=== PATIENT | male | born 1975 | race American Indian/Alaskan Native ===

== ENCOUNTER 2021-11-10 07:11 | Outpatient (CLI) | payer BC ==
--- NOTE | 2021-11-10 09:12 | Cat Scan Report ---
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 TECHNIQUE: Axial imaging performed through the chest without the use of intravenous contrast. All C T scans at this location are performed using CT dose reduction for ALARA by means of automated exposu re control. COMPARISON: None FINDINGS: Severe emphysema with scarring and bullous change in both upper lobes. There are multiple nodules primarily in the right lung in a random distribution ranging in size from 2-10 mm. There is a lso questionable cavitary disease versus thick rind associated with some of the bulla most notably in the right apex and in the left upper lobe (for example image 107 of series 2). Cavitary disease is f avored. There is no consolidation or pleural effusion. Normal heart size. No significant coronary artery calcification. Old sternotomy change Limited imaging of the upper abdomen shows nothing acute. No acute osseous abnormality. IMPRESSION: 1. Lung findings as outlined above most likely representing a combination of emphysema and underlying cavitary lung disease as well as nodularity. Consideration would be an atypical infectious/inflammat ory process such as mycobacterial disease. No dense consolidation or pleural effusion. Signer Name: Etienne Granado MD Signed: 11/10/2021 9:08 AM Workstation Name: [id number]
== END 2021-11-10 07:12 | disposition home or self-care (01) ==
LOC: CT 07:11
PROVIDERS: ATTEND Specialist
DX: J43.9 Emphysema, unspecified (principal); R91.8 Other nonspecific abnormal finding of lung field; A31.0 Pulmonary mycobacterial infection
CPT/HCPCS: 71250